=== PATIENT | male | born 1945 | race Native Hawaiian/Other Pacific Islander ===

== ENCOUNTER 2017-05-17 23:24 | Inpatient (IN) | payer OTHER, BC ==
[~2017-05-17] VITALS: Ht 180.3 cm; Wt 77.6 kg
[2017-05-17 23:32] VITALS: BP 145/83; TEMP 98.3
[2017-05-18] VITALS (9 sets, daily range): BP systolic 50–148; BP diastolic 52–85; TEMP 98–98.8; Ht 180.3 cm; Wt 77.6 kg
[2017-05-18 00:20] LABS: PLATELET COUNT 169 K/uL (142-355)
[2017-05-18 00:28] LABS: POTASSIUM 4.1 mmol/L (3.6-5.2)
[2017-05-18] MEDS ORDERED: ALPR0.5T24 PO (05:08)
[2017-05-18] MEDS ORDERED: DIOVAN320 MG PO (05:08)
[2017-05-18] MEDS ORDERED: DIOVAN40 MG PO (05:11)
[2017-05-18] MEDS ORDERED: XANAX XR1 MG PO (16:07)
[2017-05-18] MEDS ORDERED: VALSARTAN160 MG PO (16:08)
[2017-05-19] VITALS (7 sets, daily range): BP systolic 131–191; BP diastolic 52–99; TEMP 97.2–98.8
[2017-05-19 06:03] LABS: POTASSIUM 3.7 mmol/L (3.6-5.2)
[2017-05-19 06:09] LABS: PLATELET COUNT 150 K/uL (142-355)
== END 2017-05-19 22:15 | disposition home or self-care (01) | DRG 440 ==
LOC: ED 23:24 → MED/SURG 05-18 04:49
PROVIDERS: ADMIT Specialist
DX: K85.80 Other acute pancreatitis without necrosis or infection (principal); I10 Essential (primary) hypertension; N40.0 Benign prostatic hyperplasia without lower urinary tract symptoms
CPT/HCPCS: 36415; 80053; 82150; 83690; 85027; 96365; 96374; 96375; 99284; J2060; J2550; Q9963

== ENCOUNTER 2017-05-22 08:49 | Outpatient (CLI) | payer OTHER, BC ==
[~2017-05-22 08:49] MED LIST: ALPR0.5T24 PO; DIOVAN320 MG PO; DIOVAN40 MG PO; VALSARTAN160 MG PO; XANAX XR1 MG PO
== END 2017-05-22 22:25 | disposition home or self-care (01) ==
LOC: RESP 08:49
DX: K86.1 Other chronic pancreatitis (principal); I10 Essential (primary) hypertension
CPT/HCPCS: 93306

== ENCOUNTER 2018-07-10 10:27 | Outpatient (CLI) | payer OTHER, BC ==
[2018-07-10 11:30] LABS: PLATELET COUNT 202 K/uL (142-355)
[2018-07-10 11:43] LABS: POTASSIUM 4.3 mmol/L (3.6-5.2)
== END 2018-07-10 20:47 | disposition home or self-care (01) ==
LOC: RAD 10:27
PROVIDERS: Nurse Practitioner
DX: M54.41 Lumbago with sciatica, right side (principal); M25.551 Pain in right hip; Z11.59 Encounter for screening for other viral diseases; I10 Essential (primary) hypertension; E78.00 Pure hypercholesterolemia, unspecified; E55.9 Vitamin D deficiency, unspecified; E53.9 Vitamin B deficiency, unspecified; N28.89 Other specified disorders of kidney and ureter
CPT/HCPCS: 36415; 80053; 80061; 82306; 82607; 85027; 86803

== ENCOUNTER 2019-07-14 13:19 | Outpatient (CLI) | payer OTHER, BC ==
[2019-07-14 13:29] LABS: PLATELET COUNT 176 K/uL (142-355)
[2019-07-14 13:53] LABS: POTASSIUM 4.3 mmol/L (3.6-5.2)
== END 2019-07-14 21:50 | disposition home or self-care (01) ==
LOC: LAB 13:19
PROVIDERS: Internal Medicine
DX: I10 Essential (primary) hypertension (principal); Z79.899 Other long term (current) drug therapy; G25.81 Restless legs syndrome; D64.9 Anemia, unspecified; E55.9 Vitamin D deficiency, unspecified
CPT/HCPCS: 80053; 80061; 81000; 82306; 83540; 84439; 84443; 85027

== ENCOUNTER 2020-05-03 08:40 | Outpatient (CLI) | payer BC ==
[2020-05-03 09:32] LABS: PLATELET COUNT 174 K/uL (142-355)
[2020-05-03 10:26] LABS: POTASSIUM 4.2 mmol/L (3.6-5.2)
== END 2020-05-03 20:41 | disposition home or self-care (01) ==
LOC: LABW 08:40
PROVIDERS: ATTEND Internal Medicine
DX: I10 Essential (primary) hypertension (principal); E55.9 Vitamin D deficiency, unspecified
CPT/HCPCS: 36415; 80053; 80061; 81000; 82306; 84439; 84443; 85027

== ENCOUNTER 2020-11-16 08:28 | Outpatient (CLI) | payer BC ==
[2020-11-16 08:57] LABS: PLATELET COUNT 179 K/uL (142-355)
[2020-11-16 09:27] LABS: POTASSIUM 4.4 mmol/L (3.6-5.2)
== END 2020-11-16 19:00 | disposition home or self-care (01) ==
LOC: LABW 08:28
PROVIDERS: ATTEND Internal Medicine
DX: I10 Essential (primary) hypertension (principal); E78.00 Pure hypercholesterolemia, unspecified
CPT/HCPCS: 36415; 80053; 80061; 81000; 84439; 84443; 85027

== ENCOUNTER 2020-11-28 08:37 | Outpatient (CLI) | payer BC | END 2020-11-28 19:29 | disposition home or self-care (01) | LOC: US 08:37 | PROVIDERS: ATTEND Internal Medicine | DX: N18.31 Chronic kidney disease, stage 3a (principal) ==

== ENCOUNTER 2020-12-12 10:25 | Outpatient (CLI) | payer BC ==
[2020-12-12 11:10] LABS: PLATELET COUNT 185 K/uL (142-355)
[2020-12-12 11:36] LABS: POTASSIUM 4.4 mmol/L (3.6-5.2)
== END 2020-12-12 19:05 | disposition home or self-care (01) ==
LOC: LABW 10:25
PROVIDERS: ATTEND Internal Medicine
DX: I12.9 Hypertensive chronic kidney disease with stage 1 through stage 4 chronic kidney disease, or unspecified chronic kidney disease (principal); N18.32 Chronic kidney disease, stage 3b; R53.83 Other fatigue; Z79.899 Other long term (current) drug therapy; E03.8 Other specified hypothyroidism; R79.89 Other specified abnormal findings of blood chemistry
CPT/HCPCS: 36415; 80053; 81000; 82043; 82306; 82330; 82570; 82607; 82728; 82746; 83036; 83540; 83550; 83735; 83970; 84100; 84155; 84402; 84403; 84439; 84443; 85027; 85652; 86038; 86430

== ENCOUNTER 2020-12-17 23:33 | Emergency (ER) | payer BC ==
[~2020-12-17] VITALS: Ht 177.8 cm; Wt 79.4 kg
[2020-12-18 00:28] LABS: PLATELET COUNT 182 K/uL (142-355)
[2020-12-18 00:37] LABS: POTASSIUM 3.8 mmol/L (3.6-5.2)
[2020-12-18 00:47] LABS: PARTIAL THROMBOPLASTIN TIME 26.1 SECONDS (24.5-33.6)
[2020-12-18 01:22] VITALS: BP 155/78; TEMP 98.7
== END 2020-12-18 01:22 | disposition home or self-care (01) ==
LOC: ED 23:33
PROVIDERS: Emergency Medicine
DX: R20.0 Anesthesia of skin (principal); Z79.899 Other long term (current) drug therapy; Z51.81 Encounter for therapeutic drug level monitoring
CPT/HCPCS: 36415; 80053; 80307; 84484; 85027; 85610; 85730; 93005; 99283

== ENCOUNTER 2020-12-27 10:10 | Outpatient (CLI) | payer BC | END 2020-12-27 19:00 | disposition home or self-care (01) | LOC: US 10:10 → MRI 11:00 → US 19:00 | PROVIDERS: ATTEND Internal Medicine | DX: G45.9 Transient cerebral ischemic attack, unspecified (principal) ==

== ENCOUNTER 2021-01-31 10:08 | Outpatient (CLI) | payer BC | END 2021-01-31 19:07 | disposition home or self-care (01) | LOC: LABW 10:08 | PROVIDERS: ATTEND Specialist | DX: I63.9 Cerebral infarction, unspecified (principal); G62.89 Other specified polyneuropathies | CPT/HCPCS: 36415; 81240; 81241; 82607; 82746; 83090; 85240; 85300; 85301; 85303; 85306; 85652; 86038; 86140; 86147 ==

== ENCOUNTER 2021-02-06 08:01 | Outpatient (CLI) | payer BC | END 2021-02-06 18:57 | disposition home or self-care (01) | LOC: CT 08:01 | PROVIDERS: ATTEND Specialist | DX: I63.9 Cerebral infarction, unspecified (principal) | CPT/HCPCS: 36415; 82565; 84520 ==

== ENCOUNTER 2021-06-21 08:37 | Outpatient (CLI) | payer BC | END 2021-06-21 19:00 | disposition home or self-care (01) | LOC: RESP 08:37 | PROVIDERS: ATTEND Specialist | DX: I10 Essential (primary) hypertension (principal); I65.23 Occlusion and stenosis of bilateral carotid arteries; I21.9 Acute myocardial infarction, unspecified; E78.2 Mixed hyperlipidemia ==

== ENCOUNTER 2021-06-27 07:31 | Outpatient (CLI) | payer BC ==
[~2021-06-27] VITALS: Ht 30.5 cm; Wt 0.5 kg
== END 2021-06-27 18:55 | disposition home or self-care (01) ==
LOC: NM 07:31
PROVIDERS: ATTEND Specialist
DX: I10 Essential (primary) hypertension (principal); I65.23 Occlusion and stenosis of bilateral carotid arteries; I21.9 Acute myocardial infarction, unspecified; E78.2 Mixed hyperlipidemia
CPT/HCPCS: A9500; J2785

== ENCOUNTER 2021-09-25 08:38 | Outpatient (CLI) | payer BC ==
[2021-09-25 09:06] LABS: PLATELET COUNT 184 K/uL (142-355)
[2021-09-25 09:30] LABS: POTASSIUM 4.3 mmol/L (3.6-5.2)
== END 2021-09-25 18:56 | disposition home or self-care (01) ==
LOC: LABW 08:38
PROVIDERS: ATTEND Internal Medicine
DX: I12.9 Hypertensive chronic kidney disease with stage 1 through stage 4 chronic kidney disease, or unspecified chronic kidney disease (principal); N18.32 Chronic kidney disease, stage 3b; R53.83 Other fatigue; Z79.899 Other long term (current) drug therapy; R79.89 Other specified abnormal findings of blood chemistry
CPT/HCPCS: 36415; 80053; 81002; 82043; 82306; 82330; 82570; 82607; 82728; 82746; 83036; 83540; 83550; 83735; 83970; 84100; 84156; 84402; 84403; 84439; 84443; 85027; 85652; 86038; 86430

== ENCOUNTER 2022-04-05 09:33 | Outpatient (CLI) | payer BC ==
[2022-04-05 09:56] LABS: PLATELET COUNT 175 K/uL (142-355)
[2022-04-05 10:43] LABS: POTASSIUM 4.2 mmol/L (3.6-5.2)
== END 2022-04-05 21:23 | disposition home or self-care (01) ==
LOC: LABW 09:33
PROVIDERS: ATTEND Internal Medicine
DX: I12.9 Hypertensive chronic kidney disease with stage 1 through stage 4 chronic kidney disease, or unspecified chronic kidney disease (principal); N18.32 Chronic kidney disease, stage 3b; R53.83 Other fatigue; E53.9 Vitamin B deficiency, unspecified; Z79.899 Other long term (current) drug therapy; R79.89 Other specified abnormal findings of blood chemistry
CPT/HCPCS: 36415; 80053; 81002; 82043; 82306; 82330; 82570; 82607; 82728; 82746; 83036; 83540; 83550; 83735; 83970; 84100; 84156; 84402; 84403; 84439; 84443; 85027; 85652; 86038; 86431

== ENCOUNTER 2022-09-17 14:48 | Outpatient (CLI) | payer BC ==
[2022-09-17 15:18] LABS: PLATELET COUNT 202 K/uL (142-355)
== END 2022-09-17 21:58 | disposition home or self-care (01) ==
LOC: LABW 14:48
PROVIDERS: ATTEND Internal Medicine
DX: N18.32 Chronic kidney disease, stage 3b (principal); R53.83 Other fatigue; Z79.899 Other long term (current) drug therapy
CPT/HCPCS: 36415; 80053; 81002; 82043; 82306; 82330; 82570; 82607; 82728; 82746; 83036; 83540; 83550; 83735; 83970; 84100; 84156; 84402; 84403; 84439; 84443; 85027; 85652; 86038; 86431